=== PATIENT | male | born 1975 | race African-American/Black ===

== ENCOUNTER 2017-01-22 03:15 | Emergency (ER) | payer SELFPAY ==
[2017-01-22 03:27] VITALS: BP 146/90
--- NOTE | 2017-01-22 04:00 | ER Document Report ---
HPI - HPI Patient complains to provider of: right side pain Pain Level: 3 Context: Patient is a 41-year-old male that comes emergency department for chief complaint of right lower side pain, he states that he noticed this starting for the past 2-1/2 days, he cannot remember an injury, he states it hurts worse when he takes a deep breath, he denies any back pain, abdominal pain, chest pain , shortness of breath, nausea or vomiting. He takes no daily medications. Past medical history of lumbar surgery many years ago, denies any daily medications. - DERM Skin Color: Normal Past Medical History - General Information source: Patient - Social History Smoking Status: Never Smoker Frequency of alcohol use: None Drug Abuse: None Lives with: Family Family History: Reviewed & Not Pertinent Patient has suicidal ideation: No Patient has homicidal ideation: No - Medical History Medical History: Negative Renal/ Medical History: Denies: Hx Peritoneal Dialysis Surgical Hx: Negative - Immunizations Hx Diphtheria, Pertussis, Tetanus Vaccination: Yes Vertical Provider Document - CONSTITUTIONAL General Appearance: WD/WN, No Apparent Distress - INFECTION CONTROL TRAVEL OUTSIDE OF THE [place] IN LAST 30 DAYS: No - HEENT HEENT: Atraumatic, Normocephalic - NECK Neck: Normal Inspection - RESPIRATORY Respiratory: Breath Sounds Normal, No Respiratory Distress O2 Sat by Pulse Oximetry: 97 - CARDIOVASCULAR Cardiovascular: Regular Rate, Regular Rhythm - GI/ABDOMEN Gastrointestinal: Abdomen Soft, Abdomen Non-Tender - BACK Back: Normal Inspection - MUSCULOSKELETAL/EXTREMETIES Musculoskeletal/Extremeties: Tender - There is a knotted area over the right posterior lowest rib near the end of the rib which I can palpate, no abnormal heat or erythema to the area, no swelling to the area, normal examination otherwise - NEURO Level of Consciousness: Awake, Alert, Appropriate Course - Re-evaluation Re-evalutation: Difficult to see exactly what this small amount of the area on the right inferior posterior rib is, recommended that was most likely soft tissue injury, not consistent with abscess or mass, not consistent with infection or other growth. Patient requests an x-ray. This was performed, shows no abnormalities. Patient on naproxen, discussed follow-up and return precautions , patient states understanding and agreement. - Vital Signs Vital signs: Temp Pulse Resp BP Pulse Ox 98.1 F 87 16 146/90 H 97 01/22/17 03:26 01/22/17 03:26 01/22/17 03:26 01/22/17 03:26 01/22/17 03:26 - Diagnostic Test Radiology reviewed: Image reviewed, Reports reviewed Discharge - Discharge Clinical Impression: Rib pain on right side Condition: Stable Disposition: HOME, SELF-CARE Additional Instructions: X-rays show no abnormality. Examination is consistent with bony pain over the rib, possible contusion, possible soft tissue injury on top of the rib as well. Recommend heat to the area, take the naproxen as prescribed, stay hydrated. Follow-up with primary care. Return to emergency department for any concerning or worsening symptoms including difficulty breathing, swelling of the area, or any other concerning symptoms. Prescriptions: Naproxen 500 mg PO BID #20 tablet Forms: Return to Work
--- NOTE | 2017-01-22 04:51 | RADIOLOGY REPORT (SQ) ---
EXAM DESCRIPTION: RIBS RIGHT W/PA CHEST COMPLETED DATE/TIME: 01/22/2017 4:30 am REASON FOR STUDY: right lower rib pain COMPARISON: None. TECHNIQUE: Frontal view of the chest and additional views of the right ribs acquired. NUMBER OF VIEWS: Four view. LIMITATIONS: None. FINDINGS: FRONTAL CXR: No pneumothorax. No pleural effusion. No atelectasis or infiltrates. RIBS: No displaced rib fractures. No lytic or blastic bony lesions. OTHER: No other significant finding. IMPRESSION: NO PNEUMOTHORAX. NO DISPLACED RIB FRACTURES. COMMENT: SITE OF TRAUMA/COMPLAINT MARKED/STAMP COMPLETED: YES. TECHNICAL DOCUMENTATION: JOB ID: [id number] [employer] All Rights Reserved
== END 2017-01-22 05:28 | disposition home or self-care (01) ==
LOC: ER 03:15
DX: R07.81 Pleurodynia (principal)
CPT/HCPCS: 99283

== ENCOUNTER 2017-08-24 17:42 | Emergency (ER) | payer BC ==
[2017-08-24] MEDS ORDERED: TRAMADOL HCL 50 MG TABLET PO ONE (18:25)
[2017-08-24] MEDS ORDERED: IBUPROFEN 600 MG TABLET PO ONE (18:25)
--- NOTE | 2017-08-24 18:28 | ER Document Report ---
ED Extremity Problem, Lower - General Chief Complaint: Foot Pain Stated Complaint: RIGHT FOOT INJURY Time Seen by Provider: 08/24/17 18:14 Mode of Arrival: Ambulatory Information source: Patient TRAVEL OUTSIDE OF THE [place] IN LAST 30 DAYS: No - HPI Patient complains to provider of: Injury Notes: Patient arrives with complaints of right foot injury. He states that he stepped on a vent in a mobile home and his foot went through the vent and into the heating and cooling duct. When he pulled his foot out he cut his heel. States that he continues to have pain to the base of his heel as well as a laceration on the back of his heel. The pain is worse with standing or walking or touching the area. Bleeding is controlled. Last tetanus was last month. He denies any fevers. He denies any numbness, tingling, weakness. No chest pain or shortness of breath. No abdominal pain. No nausea vomiting diarrhea. He denies any other complaints at this time. - Related Data Allergies/Adverse Reactions: No Known Allergies Allergy (Verified 08/24/17 17:48) Past Medical History - Social History Smoking Status: Unknown if Ever Smoked Family History: Reviewed & Not Pertinent Renal/ Medical History: Denies: Hx Peritoneal Dialysis - Immunizations Hx Diphtheria, Pertussis, Tetanus Vaccination: Yes Review of Systems - Review of Systems -: Yes All other systems reviewed and negative Physical Exam - Vital signs Vitals: Temp Pulse Resp BP Pulse Ox 98.6 F 95 16 141/90 H 98 08/24/17 18:02 08/24/17 18:02 08/24/17 18:02 08/24/17 18:02 08/24/17 18:02 - Notes Notes: GENERAL: alert, cooperative, nontoxic, no distress. HEAD: normocephalic, atraumatic EYES: conjunctiva pink without discharge, no external redness or swelling. EARS: no external swelling, no external redness NOSE: atraumatic, no external swelling MOUTH/THROAT: mucous membranes moist and pink NECK: soft, supple, full range of motion, no meningismus. CHEST: no distress, lungs clear and equal throughout. No wheezing, rales, rhonchi. CARDIAC: regular rate and rhythm, no murmur, normal capillary refill, normal pulses. BACK: full range of motion, no CVA tenderness. EXTREMITIES: full range of motion of all extremities. No redness, no swelling. Tenderness to palpation of the right heel and plantar fascia. Full range of motion. Normal pulse and sensation distally. Normal cap refill. Healing laceration to the plantar aspect of the forefoot with no redness, swelling, drainage. Skin avulsion to the posterior heel. No active bleeding. No surrounding redness or drainage. Achilles is intact with a normal Mitchell's test. NEURO: alert and oriented 3, no focal deficits, full range of motion of all extremities. PYSCH: appropriate mood, affect. Patient is cooperative. SKIN: pink, warm, dry, no rash. Course - Re-evaluation Re-evalutation: 08/24/17 18:56 The patient is nontoxic appearing with stable vitals. The patient put his foot through a heating vent causing an injury to his foot as well as some superficial lacerations. Lacerations are healing well. There is no signs of infection. He has a normal neurovascular exam with soft compartments. X-ray shows no foreign body or acute bony abnormality per the radiologist. The patient will be discharged home with a prescription for Ultram and Voltaren. Instructed to keep wound clean and dry. Follow-up if not better in 1 week, sooner for increasing pain, fever, redness, drainage, any further concerns. The patient's emergency department workup and current diagnosis were explained to the patient and or family. Follow-up instructions were provided. Medications if prescribed were discussed. Instructions for when to return to the emergency department including specific worrisome symptoms were discussed with the patient and/or family. The patient is noted to have elevated blood pressure during today's emergency department visit. The patient was informed of this finding. The patient was instructed that this may be related to pre-hypertension and requires further evaluation with a primary care provider. The patient has no hypertensive symptoms at this time. - Vital Signs Vital signs: Temp Pulse Resp BP Pulse Ox 98.6 F 95 16 141/90 H 98 08/24/17 18:02 08/24/17 18:02 08/24/17 18:02 08/24/17 18:02 08/24/17 18:02 - Diagnostic Test Radiology reviewed: Image reviewed, Reports reviewed - No acute abnormality of the foot. Procedures - Immobilization Right foot Pre-Proc Neuro Vasc Exam: Normal Immobilizer type: Post-op shoe Performed by: PCT Post-Proc Neuro Vasc Exam: Normal Alignment checked and good: Yes Discharge - Discharge Clinical Impression: Right foot sprain Qualifiers: Encounter type: initial encounter Qualified Code(s): S93.601A - Unspecified sprain of right foot, initial encounter Laceration of right foot Qualifiers: Encounter type: initial encounter Qualified Code(s): S91.311A - Laceration without foreign body, right foot, initial encounter Condition: Stable Disposition: HOME, SELF-CARE Instructions: Laceration Care ([facility]), Foot Laceration ([facility]) Additional Instructions: Keep wound clean and dry. Take medications as prescribed. Follow-up for increasing pain, fever, redness, numbness, tingling, weakness, any further concerns. Your blood pressure was elevated during today's visit. Have this rechecked with your doctor. The medication you were prescribed today may cause drowsiness. Do not drive or operate heavy machinery while taking this medication. Prescriptions: Tramadol HCl [Ultram 50 mg Tablet] 50 mg PO Q6HP PRN #12 tablet PRN Reason: Naproxen [Naprosyn] 500 mg PO BID #20 tablet Forms: Elevated Blood Pressure, Smoking Cessation Education, Return to Work Referrals: [facility] [Provider Group] - Follow up as needed
--- NOTE | 2017-08-24 18:52 | RADIOLOGY REPORT (SQ) ---
EXAM DESCRIPTION: FOOT RIGHT COMPLETE COMPLETED DATE/TIME: 08/24/2017 6:44 pm REASON FOR STUDY: pain, injury COMPARISON: None. NUMBER OF VIEWS: Three views. TECHNIQUE: AP, lateral and oblique radiographic images acquired of the right foot. LIMITATIONS: None. FINDINGS: MINERALIZATION: Normal. BONES: No acute fracture or dislocation. No worrisome bone lesions. JOINTS: No effusions. SOFT TISSUES: No soft tissue swelling. No foreign body. OTHER: No other significant finding. IMPRESSION: NEGATIVE STUDY OF THE RIGHT FOOT. NO RADIOGRAPHIC EVIDENCE OF ACUTE INJURY. TECHNICAL DOCUMENTATION: JOB ID: [id number] [employer]- All Rights Reserved
[2017-08-24 20:12] VITALS: BP 148/96
== END 2017-08-24 20:13 | disposition home or self-care (01) ==
LOC: ER 17:42
DX: S93.601A Unspecified sprain of right foot, initial encounter (principal); S91.311A Laceration without foreign body, right foot, initial encounter; M79.671 Pain in right foot; W22.8XXA Striking against or struck by other objects, initial encounter
CPT/HCPCS: 99283

== ENCOUNTER 2017-09-01 14:31 | Emergency (ER) | payer BC ==
[2017-09-01 14:43] VITALS: BP 148/94
--- NOTE | 2017-09-01 15:09 | ER Document Report ---
HPI - HPI Patient complains to provider of: Wound recheck Onset: Last week Onset/Duration: Persistent Quality of pain: Achy Pain Level: 4 Context: Patient states that he cut his foot 1 week ago after stepping through a floor vent. Patient states he has been cleaning the wound daily with peroxide and alcohol. Patient complains of continued tenderness to wound site. Patient denies any fever. Associated Symptoms: Other - Wound to right foot Exacerbated by: Standing, Movement, Walking Relieved by: Denies Similar symptoms previously: No Recently seen / treated by doctor: Yes - ROS ROS below otherwise negative: Yes Systems Reviewed and Negative: Yes All other systems reviewed and negative - CONSTITUTIONAL Constitutional: DENIES: Fever, Chills - NEURO Neurology: DENIES: Weakness - MUSCULOSKELETAL Musculoskeletal: REPORTS: Extremity pain - DERM Notes: Wound to right foot Past Medical History - General Information source: Patient - Social History Smoking Status: Never Smoker Frequency of alcohol use: None Drug Abuse: None Occupation: [employer] Lives with: Family Family History: Reviewed & Not Pertinent - Medical History Medical History: Negative Renal/ Medical History: Denies: Hx Peritoneal Dialysis Past Surgical History: Reports: Hx Orthopedic Surgery, Other - Immunizations Hx Diphtheria, Pertussis, Tetanus Vaccination: Yes Vertical Provider Document - CONSTITUTIONAL Agree With Documented VS: Yes Exam Limitations: No Limitations General Appearance: WD/WN, No Apparent Distress - INFECTION CONTROL TRAVEL OUTSIDE OF THE [place] IN LAST 30 DAYS: No - HEENT HEENT: Atraumatic, Normocephalic - NECK Neck: Normal Inspection - RESPIRATORY Respiratory: No Respiratory Distress O2 Sat by Pulse Oximetry: 99 - CARDIOVASCULAR Pulses: Normal: Dorsalis pedis - MUSCULOSKELETAL/EXTREMETIES Musculoskeletal/Extremeties: MAEW, Tender - Right heel tenderness involving wound to posterior heel area, No Edema - NEURO Level of Consciousness: Awake, Alert, Appropriate Motor/Sensory: No Motor Deficit - DERM Integumentary: Warm, Dry Notes: Patient with healing open wound to posterior aspect of right heel, no erythema, no concern for cellulitis. Course - Re-evaluation Re-evalutation: 09/01/17 15:06 Patient with healing wound to his right foot. Suspect that patient's slow improvement of wound is likely attributed to his wound management. Patient encouraged to avoid using peroxide to cleanse the wound and instead advised to use an actual soap and water. Discussed to dress wound at home. Discussed worsening symptoms that patient should return for. Patient verbalized understanding and agrees with plan of care 09/01/17 15:07 The patient has been informed that they may have pre-hypertension or hypertension based on a blood pressure reading in the emergency department. I recommend that patient call the primary care provider listed on their discharge instructions or a physician of their choice by this week to arrange follow-up for further evaluation of possible pre-hypertension or hypertension. - Vital Signs Vital signs: Temp Pulse Resp BP Pulse Ox 98.8 F 83 16 148/94 H 99 09/01/17 14:41 09/01/17 14:41 09/01/17 14:41 09/01/17 14:41 09/01/17 14:41 - Diagnostic Test Radiology reviewed: Reports reviewed - Reviewed radiology report from previous ER visit Discharge - Discharge Clinical Impression: Elevated blood pressure reading Wound, open, foot Qualifiers: Encounter type: initial encounter Laterality: right Qualified Code(s): S91.301A - Unspecified open wound, right foot, initial encounter Condition: Stable Disposition: HOME, SELF-CARE Instructions: Dressing Instructions for Open Wounds ([facility]) Additional Instructions: Return immediately for any new or worsening symptoms Followup with your primary care provider, call tomorrow to make a followup appointment Cleanse wound with antibacterial soap and water. Keep wound covered as it continues to heal. Forms: Elevated Blood Pressure, Return to Work Referrals: HANK DRUMMOND DPM [ACTIVE STAFF] - Follow up as needed IRENE HODGES DPM [ACTIVE STAFF] - Follow up as needed
== END 2017-09-01 15:19 | disposition home or self-care (01) ==
LOC: ER 14:31
DX: S91.301A Unspecified open wound, right foot, initial encounter (principal); R03.0 Elevated blood-pressure reading, without diagnosis of hypertension; W17.89XA Other fall from one level to another, initial encounter
CPT/HCPCS: 99283

== ENCOUNTER 2017-09-11 18:45 | Emergency (ER) | payer BC ==
[2017-09-11] MEDS ORDERED: ACETAMINOPHEN 325 MG TABLET PO ONE (19:56)
[2017-09-11] MEDS ORDERED: ONDANSETRON 4 MG TAB.RAPDIS PO ONE (20:09)
[2017-09-11] MEDS ORDERED: GUAIFENESIN/D-METHORPHAN (200-20 MG) SYRUP 10 ML PO ONE (20:09)
--- NOTE | 2017-09-11 20:10 | ER Document Report ---
ED Flu Like - General Chief Complaint: Flu Symptoms Stated Complaint: FLU SYMPTOMS Time Seen by Provider: 09/11/17 19:42 Mode of Arrival: Ambulatory Information source: Patient Notes: Patient is a 41-year-old male who presents to the ER today for cough, fever, body aches, chills, sinus congestion, vomiting and diarrhea 3-1/2 days. Patient has not been taking anything at home for the symptoms, denies any shortness of breath or chest pain. He states he has not been able to eat anything because of the nausea and vomiting. He denies having asthma. TRAVEL OUTSIDE OF THE [place] IN LAST 30 DAYS: No - Related Data Allergies/Adverse Reactions: No Known Allergies Allergy (Verified 09/11/17 18:45) Past Medical History - General Information source: Patient - Social History Smoking Status: Unknown if Ever Smoked Family History: Reviewed & Not Pertinent Patient has suicidal ideation: No Patient has homicidal ideation: No Renal/ Medical History: Denies: Hx Peritoneal Dialysis Past Surgical History: Reports: Hx Orthopedic Surgery, Other - Immunizations Hx Diphtheria, Pertussis, Tetanus Vaccination: Yes Review of Systems - Review of Systems Constitutional: See HPI EENT: See HPI Cardiovascular: No symptoms reported Respiratory: See HPI Gastrointestinal: See HPI Genitourinary: No symptoms reported Male Genitourinary: No symptoms reported Musculoskeletal: No symptoms reported Skin: No symptoms reported Hematologic/Lymphatic: No symptoms reported Neurological/Psychological: No symptoms reported Physical Exam - Vital signs Vitals: Temp Pulse BP Pulse Ox 102.6 F H 113 H 156/96 H 96 09/11/17 19:38 09/11/17 19:38 09/11/17 19:38 09/11/17 19:38 - Notes Notes: PHYSICAL EXAMINATION: GENERAL: Mildly ill-appearing, but in no acute distress. HEAD: Atraumatic, normocephalic. EYES: Pupils equal round and reactive to light, extraocular movements intact, sclera anicteric, conjunctiva are normal. ENT: ear canals without erythema or foreign body, TMs pearly adam with good bony landmarks, nares with mucoid discharge, oropharynx clear without exudates. Moist mucous membranes. NECK: Normal range of motion, supple without lymphadenopathy LUNGS: Cough, otherwise CTAB and equal. No wheezes rales or rhonchi. HEART: Regular rate and rhythm without murmurs ABDOMEN: Soft, no tenderness. No guarding, no rebound BACK: no vertebral tenderness, normal ROM GI/: no CVA tenderness EXTREMITIES: Normal range of motion, no pitting edema. No cyanosis. NEUROLOGICAL: Cranial nerves grossly intact. Normal sensory/motor exams. PSYCH: Normal mood, normal affect. SKIN: Warm, Dry, normal turgor, no rashes or lesions noted Course - Re-evaluation Re-evalutation: 09/11/17 21:40 Patient passed and a p.o. challenge with crackers and something to drink after Zofran was given. Fever did reduce with Tylenol here. Patient got something for his cough. I will send home with symptomatic treatment for flulike symptoms. - Vital Signs Vital signs: Temp Pulse Resp BP Pulse Ox 102.6 F H 113 H 156/96 H 96 09/11/17 19:38 09/11/17 19:38 09/11/17 19:38 09/11/17 19:38 Discharge - Discharge Clinical Impression: Flu-like symptoms Condition: Stable Disposition: HOME, SELF-CARE Additional Instructions: Return immediately for any new or worsening symptoms. Follow up with primary care provider, call tomorrow to make followup appointment. Rest and drink plenty fluids. Prescriptions: Acetaminophen with Codeine [Tylenol with Codeine 120 mg-12 mg/5 ml] 5 ml PO Q4HP PRN #120 ml PRN Reason: Ondansetron [Zofran Odt 4 mg Tablet] 4 mg PO Q4HP PRN #30 tab.rapdis PRN Reason: Ibuprofen [Motrin 800 mg Tablet] 800 mg PO Q8H PRN #30 tab PRN Reason: Forms: Return to Work
[2017-09-11 22:35] VITALS: BP 135/82
== END 2017-09-11 21:35 | disposition home or self-care (01) ==
LOC: ER 18:45
DX: R05 Cough (principal); R50.9 Fever, unspecified; R09.81 Nasal congestion; R19.7 Diarrhea, unspecified; R11.2 Nausea with vomiting, unspecified; R52 Pain, unspecified
CPT/HCPCS: 99283; S0119; J3490

== ENCOUNTER 2017-12-03 11:56 | Emergency (ER) | payer BC ==
[2017-12-03 12:01] VITALS: BP 145/91
--- NOTE | 2017-12-03 13:04 | ER Document Report ---
HPI - HPI Patient complains to provider of: sore throat Onset: Other - 3 days Onset/Duration: Sudden Pain Level: 4 Context: 42 yo male with sore throat for 3 days. odynophagia. mild couhg. daughter had sterpt this week. Associated Symptoms: Earache Exacerbated by: Other - sweallowing Relieved by: Denies Similar symptoms previously: Yes Recently seen / treated by doctor: No - ROS ROS below otherwise negative: Yes Systems Reviewed and Negative: Yes All other systems reviewed and negative Past Medical History - General Information source: Patient - Social History Smoking Status: Current Every Day Smoker Frequency of alcohol use: None Drug Abuse: None Occupation: [employer] Lives with: Family Family History: Reviewed & Not Pertinent - Medical History Medical History: Negative Renal/ Medical History: Denies: Hx Peritoneal Dialysis Past Surgical History: Reports: Hx Orthopedic Surgery, Other - Immunizations Hx Diphtheria, Pertussis, Tetanus Vaccination: Yes Vertical Provider Document - CONSTITUTIONAL Agree With Documented VS: Yes Exam Limitations: No Limitations General Appearance: No Apparent Distress - INFECTION CONTROL TRAVEL OUTSIDE OF THE [place] IN LAST 30 DAYS: No - HEENT HEENT: Normocephalic, Pharyngeal Erythema. negative: Conjuctival Injection, Tympanic Membrane Red - NECK Neck: Supple, Lymphadenopathy-Left, Lymphadenopathy-Right - RESPIRATORY Respiratory: Breath Sounds Normal, No Respiratory Distress - CARDIOVASCULAR Cardiovascular: Regular Rate, Regular Rhythm - GI/ABDOMEN Gastrointestinal: Abdomen Soft, Abdomen Non-Tender, No Organomegaly - MUSCULOSKELETAL/EXTREMETIES Musculoskeletal/Extremeties: MAEW - NEURO Level of Consciousness: Awake - DERM Integumentary: No Rash Course - Vital Signs Vital signs: Temp Pulse Resp BP Pulse Ox 99.9 F 105 H 20 145/91 H 97 12/03/17 12:00 12/03/17 12:00 12/03/17 12:00 12/03/17 12:00 12/03/17 12:00 Discharge - Discharge Clinical Impression: Streptococcal sore throat Condition: Good Disposition: HOME, SELF-CARE Instructions: Penicillin V K ([facility]), Strep Throat ([facility]), Ibuprofen (General) ( [facility]), Acetaminophen, Topical Lidocaine ([facility]) Additional Instructions: chloraseptic spray motrin tylenol penicillin until it is gone plenty of fluids to er if worse Prescriptions: Ibuprofen [Motrin 800 mg Tablet] 800 mg PO Q8HP PRN #30 tablet PRN Reason: Penicillin V Potassium [Penicillin Vk 500 mg Tablet] 500 mg PO QID #40 tablet Forms: Return to Work
[2017-12-03] MEDS ORDERED: PENICILLIN V POTASSIUM 500 MG TABLET PO ONE (13:27)
[2017-12-03] MEDS ORDERED: IBUPROFEN 800 MG TABLET PO ONE (13:27)
[2017-12-03] MEDS ORDERED: LIDOCAINE 2% VISCOUS SOLN 20 ML UDCUP PO ONE (13:28)
== END 2017-12-03 13:58 | disposition home or self-care (01) ==
LOC: ER 11:56
DX: J02.0 Streptococcal pharyngitis (principal); R13.10 Dysphagia, unspecified; R05 Cough; H92.09 Otalgia, unspecified ear; F17.200 Nicotine dependence, unspecified, uncomplicated
CPT/HCPCS: 99283; 87880; J3490

== ENCOUNTER 2018-01-10 12:38 | Emergency (ER) | payer OTHER, BC ==
[2018-01-10 12:56] VITALS: BP 131/87
[2018-01-10] MEDS ORDERED: DEXAMETHASONE SOD PHOS INJ 10 MG/1 ML VIAL IM ONE (13:00)
[2018-01-10] MEDS ORDERED: KETOROLAC TROMETHAMINE INJ/PF 30 MG/1 ML SDV IM ONE (13:00)
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
== END 2018-01-10 13:27 | disposition home or self-care (01) ==
LOC: ER 12:38
DX: M46.1 Sacroiliitis, not elsewhere classified (principal); G89.29 Other chronic pain; M54.5 Low back pain
CPT/HCPCS: 99283; 96372; J1885; J1100

== ENCOUNTER 2018-01-27 19:37 | Emergency (ER) | payer OTHER, BC ==
[2018-01-27] MEDS ORDERED: ACETAMINOPHEN 325 MG TABLET PO ONE (20:46)
[2018-01-27] MEDS ORDERED: HYDROCODONE/ACETAMINOPHEN 5-325 MG TABLET PO ONE (22:04)
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
[2018-01-28 00:47] VITALS: BP 154/101
== END 2018-01-28 00:47 | disposition home or self-care (01) ==
LOC: ER 19:37
DX: S16.1XXA Strain of muscle, fascia and tendon at neck level, initial encounter (principal); S39.012A Strain of muscle, fascia and tendon of lower back, initial encounter; R51 Headache; V89.2XXA Person injured in unspecified motor-vehicle accident, traffic, initial encounter
CPT/HCPCS: 72050; 72110; 99283

== ENCOUNTER 2018-01-30 10:24 | Emergency (ER) | payer OTHER, BC ==
[2018-01-30 10:31] VITALS: BP 148/93
[2018-01-30] MEDS ORDERED: DIAZEPAM 5 MG TABLET PO ONE (11:03)
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
== END 2018-01-30 12:46 | disposition home or self-care (01) ==
LOC: ER 10:24
DX: S16.1XXA Strain of muscle, fascia and tendon at neck level, initial encounter (principal); V49.50XA Passenger injured in collision with unspecified motor vehicles in traffic accident, initial encounter; F17.200 Nicotine dependence, unspecified, uncomplicated
CPT/HCPCS: 72052; 99283

== ENCOUNTER 2018-06-02 15:20 | Emergency (ER) | payer BC, OTHER ==
[2018-06-02] MEDS ORDERED: NORMAL SALINE 1000 ML 1,000 ML IV ONE (16:18)
[2018-06-02] MEDS ORDERED: METOCLOPRAMIDE HCL INJ/PF 10 MG/2 ML SDV IV ONE (16:18)
[2018-06-02] MEDS ORDERED: CLONIDINE HCL 0.1 MG TABLET PO ONE (16:18)
[2018-06-02] MEDS ORDERED: DIPHENHYDRAMINE HCL 50 MG/ML VIAL IV ONE (16:18)
--- NOTE | 2018-06-02 16:21 | ER Document Report ---
ED Medical Screen (RME) - General Chief Complaint: Headache Stated Complaint: HEADACHE Time Seen by Provider: 06/02/18 16:13 Mode of Arrival: Ambulatory Information source: Patient Notes: 42-year-old male presents emergency department with a 3-day history of a throbbing headache. Patient states that it came on mild and it has been gradually worsening. He states that it spread dominantly located at his temples. He describes it as a throbbing sensation. He denies any radiation of the pain. He states that the pain is worsened with lights and noise. No alleviating factors. Patient's tried Motrin and naproxen without any relief. He is having some associated nausea. He states that he had a similar headache about a month ago. Patient states that this 1 is more intense and is not resolving on its own. He denies any fever, chills, neck pain. Patient states that his blood pressures been elevated. He is not on any antihypertensive medications. Patient states that he is also had some rhinorrhea and a productive cough that just started today. I have greeted and performed a rapid initial assessment of this patient. A comprehensive ED assessment and evaluation of the patient, analysis of test results and completion of the medical decision making process will be conducted by additional ED providers. PHYSICAL EXAMINATION: GENERAL: Well-appearing, well-nourished and in no acute distress. HEAD: Atraumatic, normocephalic. EYES: Pupils equal round extraocular movements intact, conjunctiva are normal. ENT: Nares patent NECK: Normal range of motion LUNGS: No respiratory distress Musculoskeletal: Normal range of motion NEUROLOGICAL: Normal speech, normal gait. PSYCH: Normal mood, normal affect. SKIN: Warm, Dry, normal turgor, no rashes or lesions noted. TRAVEL OUTSIDE OF THE [place] IN LAST 30 DAYS: No - Related Data Allergies/Adverse Reactions: No Known Allergies Allergy (Verified 06/02/18 15:22) Past Medical History - Social History Chew tobacco use (# tins/day): No Frequency of alcohol use: Occasional Drug Abuse: None Renal/ Medical History: Denies: Hx Peritoneal Dialysis Past Surgical History: Reports: Hx Orthopedic Surgery - back, Other - Immunizations Hx Diphtheria, Pertussis, Tetanus Vaccination: Yes Physical Exam - Vital signs Vitals: Temp Pulse Resp BP Pulse Ox 98.5 F 91 16 164/93 H 96 06/02/18 15:25 06/02/18 15:25 06/02/18 15:25 06/02/18 15:25 06/02/18 15:25 Course - Vital Signs Vital signs: Temp Pulse Resp BP Pulse Ox 98.5 F 91 16 164/93 H 96 06/02/18 15:25 06/02/18 15:25 06/02/18 15:25 06/02/18 15:25 06/02/18 15:25
--- NOTE | 2018-06-02 17:24 | RADIOLOGY REPORT (SQ) ---
EXAM DESCRIPTION: CHEST SINGLE VIEW COMPLETED DATE/TIME: 06/02/2018 5:06 pm REASON FOR STUDY: cough COMPARISON: 12/30/2015 EXAM PARAMETERS: NUMBER OF VIEWS: One view. TECHNIQUE: Single frontal radiographic view of the chest acquired. RADIATION DOSE: NA LIMITATIONS: None. FINDINGS: LUNGS AND PLEURA: No opacities, masses or pneumothorax. No pleural effusion. MEDIASTINUM AND HILAR STRUCTURES: No masses. Contour normal. HEART AND VASCULAR STRUCTURES: Heart normal in size. Normal vasculature. BONES: No acute findings. HARDWARE: None in the chest. OTHER: No other significant finding. IMPRESSION: NO ACUTE RADIOGRAPHIC FINDING IN THE CHEST. TECHNICAL DOCUMENTATION: JOB ID: [id number] [place]-72 2010 [employer]- All Rights Reserved Reading location - IP/workstation name: [email or web address]
--- NOTE | 2018-06-02 17:28 | ER Document Report ---
ED General - General Chief Complaint: Headache Stated Complaint: HEADACHE Time Seen by Provider: 06/02/18 16:13 Mode of Arrival: Ambulatory TRAVEL OUTSIDE OF THE [place] IN LAST 30 DAYS: No - HPI Notes: Patient is a 42-year-old male with no significant past medical history aside from elevated blood pressure, unmedicated, who presents to the ED complaining of a frontal headache intermittently over the last 3 days that is described as a throb. Patient states that he has had headaches before that were similar, but his conservative measures have not been helping as much this time. Patient states that he is otherwise eating and drinking without any difficulties. He is urinating normally and having normal bowel movements. Patient states that he does have some nasal congestion/discharge that started today as well as an occasional dry cough, but otherwise feels well. Denies any drug allergies or IV drug use. No other concerns or complaints. Denies any fever, head injury, neck pain, changes in vision/speech/mentation/hearing, URI, sore throat, chest pain, palpitations, syncope, cough, shortness of breath, wheeze, dyspnea, abdominal pain, nausea/vomiting/diarrhea, urinary retention, dysuria, hematuria , loss of control of bowel or bladder, numbness/tingling, saddle anesthesia, muscle paralysis/weakness, or rash. - Related Data Allergies/Adverse Reactions: No Known Allergies Allergy (Verified 06/02/18 15:22) Past Medical History - General Information source: Patient - Social History Smoking Status: Current Some Day Smoker Chew tobacco use (# tins/day): No Frequency of alcohol use: Occasional Drug Abuse: None Family History: Reviewed & Not Pertinent Patient has suicidal ideation: No Patient has homicidal ideation: No Renal/ Medical History: Denies: Hx Peritoneal Dialysis Past Surgical History: Reports: Hx Orthopedic Surgery - back, Other - Immunizations Hx Diphtheria, Pertussis, Tetanus Vaccination: Yes Review of Systems - Review of Systems -: Yes All other systems reviewed and negative Physical Exam - Vital signs Vitals: Temp Pulse Resp BP Pulse Ox 98.5 F 91 16 164/93 H 96 06/02/18 15:25 06/02/18 15:25 06/02/18 15:25 06/02/18 15:25 06/02/18 15:25 - Notes Notes: PHYSICAL EXAMINATION: GENERAL: Well-appearing, well-nourished and in no acute distress. A&Ox4. Answers questions appropriately. HEAD: Atraumatic, normocephalic. Non-tender. EYES: Pupils equal round and reactive to light, extraocular movements intact, sclera anicteric, conjunctiva are normal. No nystagmus. vis morris intact. ENT: EAC clear b/l. TM's intact b/l without erythema, fluid, or perforation. Nares patent and without discharge. oropharynx clear without exudates. No tonsilar hypertrophy or erythema. Moist mucous membranes. No sinus tenderness. NECK: Normal range of motion, supple without lymphadenopathy. No rigidity/ meningismus. No midline tenderness. LUNGS: Breath sounds clear to auscultation bilaterally and equal. No wheezes rales or rhonchi. HEART: Regular rate and rhythm without murmurs, rubs, gallops. ABDOMEN: Soft, nontender, nondistended abdomen. No guarding, no rebound. Normal bowel sounds present. No CVA tenderness bilaterally. Musculoskeletal: Ext's b/l: FROM to passive/active. Strength 5+/5. No deficits noted. No bony tenderness of extremities. Extremities: No cyanosis, clubbing, or edema b/l. Peripheral pulses 2+. Capillary refill less than 2 seconds. NEUROLOGICAL: NIH 0. GCS 15. Cranial nerves grossly intact. Normal speech, normal gait. Normal sensory, motor exams. Reflexes 2+ b/l. JERZY's negative. Pronator drift negative. Heel/solano, finger/nose wnl. PSYCH: Normal mood, normal affect. SKIN: Warm, Dry, normal turgor, no rashes or lesions noted. Course - Re-evaluation Re-evalutation: 06/02/18 17:28 Patient received clonidine, Benadryl, and Compazine at triage which resolved his headache. Patient states that he is feeling much better. We are waiting for his influenza test and chest x-ray to return. Patient is currently receiving fluids as well. Patient has no new concerns or complaints at this time. 06/02/18 18:18 Patient is an afebrile, well-hydrated, 42-year-old male who presents to the ED for an acute URI, suspect viral as well as a headache which I suspect to be benign. Vitals are acceptable without any significant tachycardia, tachypnea, or hypoxia. Blood pressure has remained stable. PE is otherwise unremarkable for any focal neurological deficits. NIH 0, GCS 15, cranial nerves grossly intact. Chest x-ray was unremarkable and rapid influenza was negative. Patient is nontoxic-appearing and is tolerating p.o. without any difficulties. No further labs or imaging warranted at this time. Patient states that he is patient is currently asymptomatic. Low suspicion for any acute glaucoma, temporal arteritis, meningitis, intracranial hemorrhage, ischemic stroke, sepsis , severe dehydration, or fracture at this time. Patient is aware that his condition can change from initial presentation and that he needs to monitor symptoms closely for any acute changes. Conservative measures for symptoms. Recheck with your PCM in 2-3 days. Return to the ED with any worsening/ concerning symptoms otherwise as reviewed in discharge. Patient is in agreement. - Vital Signs Vital signs: Temp Pulse Resp BP Pulse Ox 98.4 F 80 16 135/91 H 96 06/02/18 18:12 06/02/18 18:12 06/02/18 15:25 06/02/18 18:12 06/02/18 18:12 Discharge - Discharge Clinical Impression: Acute URI Headache Qualifiers: Headache type: unspecified Headache chronicity pattern: acute headache Intractability: not intractable Qualified Code(s): R51 - Headache Condition: Stable Disposition: HOME, SELF-CARE Instructions: Headache ([facility]) Additional Instructions: Maintain adequate fluid and food intake [id number] cold medication as needed Take home medications as directed Low sodium/fat diet Exercise regularly Monitor blood pressure daily and keep a log Monitor symptoms for any acute changes Recheck with your PCM in 2-3 days Consider a follow-up with cardiology Return to the ED with any worsening symptoms and/or development of fever, headache, changes in behavior/mentation/vision/speech, chest pain, palpitations , syncope, shortness of breath, trouble breathing, abdominal pain, n/v/d, blood in stool/urine, loss of control of bowel/bladder, urinary retention, muscle weakness/paralysis, saddle anesthesia, numbness/tingling, or other worsening symptoms that are concerning to you. Forms: Elevated Blood Pressure, Smoking Cessation Education Referrals: MITA GARCIA MD [ACTIVE STAFF] - Follow up in 3-5 days
[2018-06-02 17:35] LABS: A TYPE INFLUENZA AG NEGATIVE (NEGATIVE); B INFLUENZA AG NEGATIVE (NEGATIVE)
[2018-06-02 18:15] VITALS: BP 135/91
== END 2018-06-02 18:20 | disposition home or self-care (01) ==
LOC: ER 15:20
DX: J06.9 Acute upper respiratory infection, unspecified (principal); R51 Headache; R05 Cough; R03.0 Elevated blood-pressure reading, without diagnosis of hypertension; F17.200 Nicotine dependence, unspecified, uncomplicated
CPT/HCPCS: 99284; 96361; 96374; 96375; 87804; 71045; J1200; J2765; J7030

== ENCOUNTER 2018-10-16 15:17 | Emergency (ER) | payer BC, OTHER ==
[2018-10-16 16:14] LABS: APPEARANCE,URINE CLEAR; BILIRUBIN,URINE NEGATIVE (NEGATIVE); COLOR,URINE YELLOW; GLUCOSE, URINE NEGATIVE (NEGATIVE); KETONES,URINE NEGATIVE (NEGATIVE); LEUKOCYTE ESTERASE,URINE NEGATIVE (NEGATIVE); NITRITE,URINE NEGATIVE (NEGATIVE); PROTEIN,URINE NEGATIVE (NEGATIVE); URINE SPECIFIC GRAVITY 1.024; UROBILINOGEN,URINE NEGATIVE mg/dL (<2.0)
[2018-10-16] MEDS ORDERED: AZITHROMYCIN 250 MG TABLET PO ONE (16:40)
[2018-10-16] MEDS ORDERED: METRONIDAZOLE 500 MG TABLET PO ONE (16:40)
[2018-10-16] MEDS ORDERED: CEFTRIAXONE INJ 250 MG VIAL IM ONE (16:40)
[2018-10-16] MEDS ORDERED: LIDOCAINE 1% INJ-PF (10 MG/ML) 30 ML SDV NEB ONE (16:40)
--- NOTE | 2018-10-16 16:46 | ER Document Report ---
ED GI/ - General Chief Complaint: Penile Discharge Stated Complaint: GROIN PAIN, PENILE DISCHARGE Time Seen by Provider: 10/16/18 16:11 Mode of Arrival: Ambulatory Information source: Patient Notes: 43-year-old male presents to ED for complaint of penile discharge and some groin discomfort for couple days. He states that started today. He states the discharge is kind of a cloudy clear. He states he is in a monogamous relationship with his significant other and she recently was diagnosed with bacterial vaginosis. He states he is not been intermittent with anybody but her. States he works at [employer] and [employer]. TRAVEL OUTSIDE OF THE [place] IN LAST 30 DAYS: No - HPI Patient complains to provider of: Groin pain, Other - Penile discharge Onset: Other - See above Quality of pain: Achy Severity at maximum: Mild Severity in ED: Mild Pain Level: 1 Location: Other - Left groin Associated symptoms: Penile discharge, Other - Left groin discomfort with no swelling or redness Exacerbated by: Denies Relieved by: Denies Similar symptoms previously: No Recently seen / treated by doctor: No - Related Data Allergies/Adverse Reactions: No Known Allergies Allergy (Verified 06/02/18 15:22) Past Medical History - General Information source: Patient - Social History Smoking Status: Current Some Day Smoker Cigarette use (# per day): Yes Smoking Education Provided: Yes - 4 minutes Frequency of alcohol use: None - Weekly 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 Lives with: Spouse/Significant other Family History: Reviewed & Not Pertinent Patient has suicidal ideation: No Patient has homicidal ideation: No - Past Medical History Cardiac Medical History: Reports: None Pulmonary Medical History: Reports: None EENT Medical History: Reports: None Neurological Medical History: Reports: None Endocrine Medical History: Reports: None Renal/ Medical History: Reports: None Malignancy Medical History: Reports None GI Medical History: Reports: None Musculoskeletal Medical History: Reports Hx Musculoskeletal Trauma Skin Medical History: Reports None Psychiatric Medical History: Reports: None Traumatic Medical History: Reports: None Infectious Medical History: Reports: None Past Surgical History: Reports: Hx Orthopedic Surgery - back, Other - Immunizations Immunizations up to date: Yes Hx Diphtheria, Pertussis, Tetanus Vaccination: Yes Review of Systems - Review of Systems Constitutional: No symptoms reported EENT: No symptoms reported Cardiovascular: No symptoms reported Respiratory: No symptoms reported Gastrointestinal: No symptoms reported Genitourinary: No symptoms reported Male Genitourinary: Penile discharge - cloudy Musculoskeletal: Muscle pain - groin Skin: No symptoms reported Hematologic/Lymphatic: No symptoms reported Neurological/Psychological: No symptoms reported -: Yes All other systems reviewed and negative Physical Exam - Vital signs Vitals: Temp Pulse Resp BP Pulse Ox 98.7 F 81 16 148/91 H 100 10/16/18 15:29 10/16/18 15:29 10/16/18 15:29 10/16/18 15:29 10/16/18 15:29 Interpretation: Normal - General General appearance: Appears well, Alert - HEENT Head: Normocephalic, Atraumatic Eyes: Normal Pupils: PERRL - Respiratory Respiratory status: No respiratory distress Chest status: Nontender Breath sounds: Normal Chest palpation: Normal - Cardiovascular Rhythm: Regular Heart sounds: Normal auscultation Murmur: No - Abdominal Inspection: Normal Distension: No distension Bowel sounds: Normal Tenderness: Nontender Organomegaly: No organomegaly - Genitourinary Inspection: Penile discharge Tenderness: Other - left groin Cremasteric reflex: Normal Scrotum: Normal - Back Back: Normal, Nontender - Extremities General upper extremity: Normal inspection, Nontender, Normal color, Normal ROM, Normal temperature General lower extremity: Normal inspection, Nontender, Normal color, Normal ROM, Normal temperature, Normal weight bearing. No: Paras's sign - Neurological Neuro grossly intact: Yes Cognition: Normal Orientation: AAOx4 [place] Coma Scale Eye Opening: Spontaneous [place] Coma Scale Verbal: Oriented [place] Coma Scale Motor: Obeys Commands [place] Coma Scale Total: 15 Speech: Normal Motor strength normal: LUE, RUE, LLE, RLE Sensory: Normal - Psychological Associated symptoms: Normal affect, Normal mood - Skin Skin Temperature: Warm Skin Moisture: Dry Skin Color: Normal Course - Re-evaluation Re-evalutation: 10/16/18 17:14 Patient was treated with Rocephin, azithromycin, and Flagyl for his penile discharge and groin pain. He was also instructed to follow-up with urology if his pain continues. His girlfriend is being treated for bacterial vaginosis with Flagyl so the patient was treated with Flagyl also. Patient was given the number to call for his results of his gonorrhea and chlamydia tomorrow at [phone]. Patient was instructed on no sexual activity until he got the results of these and if they were positive no sexual activity until they had both been treated for 10-14 days. - Vital Signs Vital signs: Temp Pulse Resp BP Pulse Ox 98.7 F 72 16 138/88 H 99 10/16/18 15:29 10/16/18 17:13 10/16/18 17:13 10/16/18 17:13 10/16/18 17:13 Discharge - Discharge Clinical Impression: Penile discharge Condition: Stable Disposition: HOME, SELF-CARE Additional Instructions: Urethritis You have urethritis, an infection of the urethra. The usual symptoms are pain on urination and discharge. The infection is often caused by gonorrhea or chlamydia. Treatment is antibiotics. In addition, any sexual contacts should be evaluated by a physician as soon as possible. As this infection can be transmitted sexually, refrain from sexual activity until the infection is c onfirmed as healed by your physician. If gonorrhea or chlamydia is found on culture, the health department must be notified. Call the doctor at once if you develop difficulty passing your urine, high fever, rash, joint swelling, or other new symptoms. CEPHALOSPORINS: An antibiotic of the cephalosporin class has been prescribed. This type of antibiotic covers a wide variety of infections, including those of the skin, lungs, middle ear, and urinary tract. This antibiotic is somewhat similar to the penicillin family. In rare cases, a person who is allergic to penicillin will also be allergic to this medication. If you have had a severe allergic reaction to penicillin, and have not taken this antibiotic since that time, notify your doctor. Antibiotics which cover many germs ("broad spectrum" antibiotics) are more likely to cause diarrhea or "yeast" infections. Women prone to vaginal yeast problems may suffer an attack after taking this antibiotic. In infants, oral thrush (white spots "stuck" on the cheek) or yeast diaper rash may result. See your doctor if these problems occur. Call the doctor at once if you develop hives, itching, shortness of breath, or lightheadedness. AZITHROMYCIN: Azithromycin (Zithromax) is a broad spectrum antibiotic in the same class as erythromycin. It can treat a variety of bacterial infections, but is most frequently used for respiratory infections. Azithromycin is extremely long-lasting. It accumulates in body tissues and continues to kill bacteria for many days. In order to improve absorption, Azithromycin should be taken at least one hour before or two hours after a meal. It does not have the same strong tendency to upset the stomach as erythromycin and is usually very well tole rated. Patients who have had a rash or other true allergic reactions to erythromycin should not take this medication. Call if you develop gastrointestinal distress, severe diarrhea, rash, hives, itching, or shortness of breath. METRONIDAZOLE: You are being treated with Flagyl due to your significant other's diagnosis of bacterial vaginosis Metronidazole (Flagyl) has been prescribed. This medication is used to kill a type of bacteria called anaerobes, and protozoan parasites such as trichomonas and Giardia. Flagyl often causes a metallic taste in the mouth and mild nausea. Do not use alcohol in any form with Flagyl (including alcohol in medication elixirs). Flagyl interacts with alcohol to cause flushing, palpitations, headache, stomach cramps, and vomiting. Do not use Flagyl if you are taking Antabuse (disulfiram). Call the doctor at once if you develop rash, shortness of breath, itching, or lightheadedness. FOLLOW-UP CARE: If you have been referred to a physician for follow-up care, call the physicians office for an appointment as you were instructed or within the next two days. If you experience worsening or a significant change in your symptoms, notify the physician immediately or return to the Emergency Department at any time for re-evaluation. You can call tomorrow [phone] and ask for the results of your gonorrhea and Chlamydia test that was done today. You continue to have pain in your groin you will need to follow-up with 1 of the following urologist [facility] [address] [facility] Open 9:00 AM - 5:00 PM [facility] [address] [place] 8:00 AM - 4:30 PM [facility] [address] [place] [facility] [address] [facility] Prescriptions: Metronidazole [Flagyl 500 mg Tablet] 500 mg PO BID #14 tablet Forms: Return to Work
[2018-10-16 17:14] VITALS: BP 138/88
[2018-10-16 17:37] LABS: CHLAM PCR NOT DETECTED (NOT DETECT); GON PCR NOT DETECTED (NOT DETECT)
== END 2018-10-16 17:15 | disposition home or self-care (01) ==
LOC: ER 15:17
DX: R36.9 Urethral discharge, unspecified (principal); R10.30 Lower abdominal pain, unspecified; F17.210 Nicotine dependence, cigarettes, uncomplicated
CPT/HCPCS: 99406; 99283; 96372; 81001; 87491; 87591; J3490; J0696

== ENCOUNTER 2018-11-09 07:30 | Emergency (ER) | payer OTHER ==
[2018-11-09] MEDS ORDERED: DIPHENHYDRAMINE HCL 50 MG/ML VIAL IV ONE (08:44)
[2018-11-09] MEDS ORDERED: ONDANSETRON HCL INJ/PF 4 MG/2 ML SDV IV ONE (08:44)
[2018-11-09] MEDS ORDERED: PROCHLORPERAZINE EDISYLATE INJ 10 MG/2 ML VIAL IM ONE (08:44)
--- NOTE | 2018-11-09 08:47 | ER Document Report ---
ED General - General Chief Complaint: Headache Stated Complaint: HEADACHE Time Seen by Provider: 11/09/18 08:27 Notes: Patient is a 43-year-old male who presents emergency department with a chief complaint of a headache that starts at his for her head and radiates to the back of his head and neck. He states that he has had his headache for the past 3 days. Has taken ibuprofen and naproxen at home, with no relief. He is history of migraines in the past. States his mother had taken him as a child to the emergency department to have his headaches taking care of before. Past medical history includes back surgery. He is not taking any medications, other than ibuprofen naproxen for the pain. Admits to some rhinorrhea. Denies any double vision, projectile vomiting, numbness, tingling, or loss of body function. TRAVEL OUTSIDE OF THE [place] IN LAST 30 DAYS: No - Related Data Allergies/Adverse Reactions: No Known Allergies Allergy (Verified 06/02/18 15:22) Past Medical History - Social History Smoking Status: Current Some Day Smoker Chew tobacco use (# tins/day): No Frequency of alcohol use: Social Drug Abuse: None Family History: Reviewed & Not Pertinent Patient has suicidal ideation: No Patient has homicidal ideation: No Neurological Medical History: Reports: Hx Migraine Renal/ Medical History: Denies: Hx Peritoneal Dialysis Musculoskeletal Medical History: Reports Hx Musculoskeletal Trauma Past Surgical History: Reports: Hx Orthopedic Surgery - back, Other - Immunizations Immunizations up to date: Yes Hx Diphtheria, Pertussis, Tetanus Vaccination: Yes Review of Systems - Review of Systems Notes: REVIEW OF SYSTEMS: CONSTITUTIONAL : Denies recent illness. Denies recent unintentional weight l oss. Denies fever, chills, or sweats. EENT: See HPI CARDIOVASCULAR: Denies chest pain. RESPIRATORY: Denies shortness of breath, cough, congestion, difficulty breathing, or wheezing. GASTROINTESTINAL: Denies nausea, vomiting, and diarrhea. Denies abdominal pain. Denies constipation. GENITOURINARY: Denies difficulty urinating, burning, blood in urine, urgency or frequency. MUSCULOSKELETAL: Denies neck and back pain. Denies joint pain or swelling. SKIN: Denies rash, itchiness, or lesions HEMATOLOGIC : Denies easy bruising or bleeding. LYMPHATIC: Denies swollen, painful, enlarged glands. NEUROLOGICAL: See HPI. PSYCHIATRIC: Denies stress, anxiety, alteration in sleep patterns, or depression. All other systems reviewed and negative. Physical Exam - Vital signs Vitals: Temp Pulse Resp BP Pulse Ox 98.1 F 77 16 151/87 H 99 11/09/18 07:34 11/09/18 07:34 11/09/18 07:34 11/09/18 07:34 11/09/18 07:34 - Notes Notes: PHYSICAL EXAMINATION: GENERAL: Appears well, healthy, well-nourished, no acute distress. HEAD: Normocephalic, atraumatic. EYES: PERRL, conjunctiva normal, all extraocular movements intact, sclera nonicteric ENT: Moist mucous membranes. Erythema and edema noted to nasal mucosa. NECK: Supple, no noticeable swelling, redness, rash. Normal range of motion. LUNGS: Equal breath sounds bilaterally and clear to auscultation. No wheezes rales or rhonchi. CARDIOVASCULAR: S1-S2, regular rate, regular rhythm. Radial pulses 2+, normal. ABDOMEN: Normoactive bowel sounds. Soft, nontender, no guarding, no rebound tenderness, and no masses palpated. EXTREMITIES: Normal strength and range of motion, no pitting or edema. No cyanosis. NEUROLOGICAL: Moves all extremities upon command. Strength 5/5 in all extremities. PSYCH: Normal mood, normal affect. SKIN: Warm, dry. No rash, lesions, ulcerations noted. Normal skin turgor. Course - Re-evaluation Re-evalutation: 11/09/18 09:58 Patient states that he has almost complete resolution of his migraine headache. Labs are not indicated, as the patient states that he has had migraine headaches before. I do not suspect patient has an intracranial bleed, or any life- threatening etiology at this time. He will be sent home with Flonase and Zyrtec to help with his edema and erythema to his nasal mucosa. Strict follow-up precautions were given. Verbal discharge instructions were given to the p atient. They verbalized understanding. They are stable for discharge. - Vital Signs Vital signs: Temp Pulse Resp BP Pulse Ox 97.7 F 65 17 154/95 H 100 11/09/18 10:14 11/09/18 10:14 11/09/18 10:14 11/09/18 10:14 11/09/18 10:14 Discharge - Discharge Clinical Impression: Nausea, Seasonal allergies Headache Qualifiers: Headache type: unspecified Headache chronicity pattern: acute headache Intractability: not intractable Qualified Code(s): R51 - Headache Condition: Stable Disposition: HOME, SELF-CARE Instructions: Headache (OM) Additional Instructions: You were seen today for a migraine headache. Please follow-up with your primary care doctor regarding today's ED visit. Return to emergency department immediately if you develop a headache that gets to its maximum severity within 20 minutes of onset, you pass out, you develop weakness, numbness, changes in your vision, become unable to keep any fluids down for more than 12 hours, or develop a fever greater than 100.4 degrees Fahrenheit. If you develop a similar migraine headache in the future I recommend that you immediately take 600 mg of ibuprofen and 50 mg of Benadryl and go to sleep as quickly as possible. This can often prevent your migraine headache from beco salomon severe. You have also been prescribed Flonase and Zyrtec. Take your first dose of Zyrtec tomorrow morning. Please follow-up with your primary care provider in regards to this visit. Prescriptions: Cetirizine HCl [Zyrtec 10 mg Tablet] 1 tab PO DAILY #30 tablet Fluticasone Propionate [Flonase Nasal Freeman 50 Mcg/Freeman 16 gm] 2 sprays NASL Q12 #1 inhaler Forms: Return to Work
[2018-11-09 10:18] VITALS: BP 154/95
== END 2018-11-09 10:18 | disposition home or self-care (01) ==
LOC: ER 07:30
DX: R51 Headache (principal); J30.2 Other seasonal allergic rhinitis; R11.0 Nausea; F17.200 Nicotine dependence, unspecified, uncomplicated
CPT/HCPCS: 96374; 99283; 96372; 96375; J1200; J0780; J2405

== ENCOUNTER 2019-01-30 07:34 | Emergency (ER) | payer OTHER ==
--- NOTE | 2019-01-30 08:33 | ER Document Report ---
ED General - General Chief Complaint: Abscess Stated Complaint: ABSCESS Time Seen by Provider: 01/30/19 08:25 Primary Care Provider: ELOY LAM [Primary Care Provider] - Follow up as needed TRAVEL OUTSIDE OF THE [place] IN LAST 30 DAYS: No - HPI Notes: Patient is a 43 yo male that presents to the emergency department for chief complaint of gluteal lump. Patient has noticed a lump on his left gluteus near his gluteal cleft for the last 1 to 2 months. He states he gets bigger and smaller but is not completely resolved. He states sometimes it is painful to sit on. He denies any drainage or redness to the area. He has not seen anyone regarding this. He states that it has not changed today but he wanted to have it evaluated. He denies any other symptoms including black or bloody stools, painful stools, diarrhea/constipation, fevers and chills. Past Medical History: Negative Past Surgical History: Lumbar spine surgery Social History: Social alcohol. Denies drug and tobacco use Family History: Reviewed and noncontributory for presenting illness Allergies: Reviewed, see documented allergy list. REVIEW OF SYSTEMS: CONSTITUTIONAL : No fever No chills No diaphoresis No recent illness EENT: No vision changes No congestion No sore throat CARDIOVASCULAR: No chest pain No palpitations RESPIRATORY: No shortness of breath No cough No difficulty breathing GASTROINTESTINAL: No abdominal pain No nausea No vomiting No diarrhea GENITOURINARY: No dysuria No hematuria No difficulty urinating MUSCULOSKELETAL: No back pain No leg pain No arm pain SKIN: No rashes Gluteal lesions LYMPHATIC: No swollen, enlarged glands. NEUROLOGICAL: No lightheadedness No headache No weakness No paresthesias PSYCHIATRIC: No anxiety No depression PHYSICAL EXAMINATION: Vital signs reviewed, nursing noted reviewed. GENERAL: Well-appearing, well-nourished and in no acute distress. HEAD: Atraumatic, normocephalic. EYES: Eyes appear normal, extraocular movements intact, sclera anicteric, conjunctiva are normal. ENT: nares patent, oropharynx clear without exudates. Moist mucous membranes. NECK: Normal range of motion, supple without lymphadenopathy LUNGS: Breath sounds clear to auscultation bilaterally and equal. No wheezes rales or rhonchi. HEART: Regular rate and rhythm without murmurs ABDOMEN: Soft, nontender, normoactive bowel sounds. No rebound, guarding, or rigidity. No masses appreciated. EXTREMITIES: Nontender, good range of motion, no pitting or edema. NEUROLOGICAL: No focal neurological deficits. Moves all extremities spontaneously Motor and sensory grossly intact on exam. PSYCH: Normal mood, normal affect. SKIN: Warm, Dry, normal turgor, small 0.5 cm x 0.5 cm firm left mid gluteal cleft cyst with no erythema or drainage. - Related Data Allergies/Adverse Reactions: No Known Allergies Allergy (Verified 01/30/19 07:34) Past Medical History - Social History Smoking Status: Current Some Day Smoker Frequency of alcohol use: Social Drug Abuse: Bath salts Family History: Reviewed & Not Pertinent Patient has suicidal ideation: No Patient has homicidal ideation: No Neurological Medical History: Reports: Hx Migraine Renal/ Medical History: Denies: Hx Peritoneal Dialysis Musculoskeletal Medical History: Reports Hx Musculoskeletal Trauma Past Surgical History: Reports: Hx Orthopedic Surgery - back, Other - Immunizations Immunizations up to date: Yes Hx Diphtheria, Pertussis, Tetanus Vaccination: Yes Physical Exam - Vital signs Vitals: Temp Pulse Resp BP Pulse Ox 98.3 F 72 16 142/82 H 99 01/30/19 07:37 01/30/19 07:37 01/30/19 07:37 01/30/19 07:37 01/30/19 07:37 Course - Re-evaluation Re-evalutation: 01/30/19 08:33 Vitals reviewed. Nursing notes reviewed. Patient does have a small cystic structure but does not appear infected in his left gluteal region. The area is firm without fluctuance and is not requiring incision and drainage. I suspect this is likely a pilonidal cyst that is not currently inflamed or infected. Patient will be referred to surgery for further management as needed. He was counseled on return precautions and verbalized understanding. - Vital Signs Vital signs: Temp Pulse Resp BP Pulse Ox 98.3 F 72 16 142/82 H 99 01/30/19 07:37 01/30/19 07:37 01/30/19 07:37 01/30/19 07:37 01/30/19 07:37 Discharge - Discharge Clinical Impression: Pilonidal cyst without infection Condition: Stable Disposition: HOME, SELF-CARE Additional Instructions: Please return to the emergency department if you have any worsening, or concern of your symptoms. Please return to the emergency department if you develop chest pain, difficulty breathing, severe abdominal pain, or ongoing vomiting. Please follow-up with your primary care physician in 2-3 days and any other recommended physicians. If prescribed, take all medications as directed. If you have any questions or concerns do not hesitate to return the emergency department for evaluation. This area is likely a pilonidal cyst. They can become infected and occasionally need drained if infection occurs. The treatment is to surgically remove the cyst which is usually done when they are not infected. If this area becomes increasingly red, swollen, painful or has purulent drainage please return to the emergency room for further care. Please contact Dr. Wright, general surgery, for removal of the cyst as needed. Referrals: [facility] [Primary Care Provider] - Follow up as needed EDDIE WRIGHT MD [ACTIVE STAFF] - Follow up as needed
[2019-01-30 08:49] VITALS: BP 150/93
== END 2019-01-30 08:51 | disposition home or self-care (01) ==
LOC: ER 07:34
DX: L05.91 Pilonidal cyst without abscess (principal); F17.200 Nicotine dependence, unspecified, uncomplicated; F19.10 Other psychoactive substance abuse, uncomplicated
CPT/HCPCS: 99282

== ENCOUNTER 2019-03-19 08:28 | Emergency (ER) | payer OTHER ==
[2019-03-19] MEDS ORDERED: IBUPROFEN 800 MG TABLET PO ONE (09:35)
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
[2019-03-19 10:03] VITALS: BP 151/88
== END 2019-03-19 10:05 | disposition home or self-care (01) ==
LOC: ER 08:28
DX: T22.112A Burn of first degree of left forearm, initial encounter (principal); T22.132A Burn of first degree of left upper arm, initial encounter; T31.0 Burns involving less than 10% of body surface; X19.XXXA Contact with other heat and hot substances, initial encounter

== ENCOUNTER 2019-07-19 07:28 | Emergency (ER) | payer OTHER ==
[2019-07-19] MEDS ORDERED: ONDANSETRON 4 MG TAB.RAPDIS PO ONE (09:03)
[2019-07-19] MEDS ORDERED: MORPHINE SULFATE 10 MG/ML INJ IV ONE (09:03)
[2019-07-19] MEDS ORDERED: LIDOCAINE 1% INJ-PF (10 MG/ML) 30 ML SDV INJ ONE (09:04)
[2019-07-19] MEDS ORDERED: MORPHINE SULFATE 10 MG/ML INJ IM ONE (09:39)
--- NOTE | 2019-07-19 09:45 | ER Document Report ---
Entered by GEORGE SEARS SCRIBE 07/19/19 0901 Acting as scribe for:LIEN DAY MD ED General - General Chief Complaint: Abscess Stated Complaint: CYST Time Seen by Provider: 07/19/19 08:54 Primary Care Provider: CAROLE,ELOY [Primary Care Provider] - Follow up as needed Mode of Arrival: Ambulatory Information source: Patient Notes: This 43 year old male patient presents to the ED today with complaints of a inflamed and swollen cyst that has been present for the past x2 months. Patient reports that the cyst is on his left gluteus near the gluteal cleft and that it is draining. TRAVEL OUTSIDE OF THE [place] IN LAST 30 DAYS: No - Related Data Allergies/Adverse Reactions: No Known Allergies Allergy (Verified 07/19/19 07:46) Past Medical History - General Information source: Patient - Social History Smoking Status: Former Smoker - quit x6 months ago Cigarette use (# per day): No Chew tobacco use (# tins/day): No Frequency of alcohol use: Social Drug Abuse: None Occupation: [employer] employee Family History: Reviewed & Not Pertinent Patient has suicidal ideation: No Patient has homicidal ideation: No Neurological Medical History: Reports: Hx Migraine Musculoskeletal Medical History: Reports Hx Musculoskeletal Trauma Past Surgical History: Reports: Hx Orthopedic Surgery - interveterbral cage fusion L2-3 - Immunizations Immunizations up to date: Yes Hx Diphtheria, Pertussis, Tetanus Vaccination: Yes Review of Systems - Review of Systems Constitutional: No symptoms reported EENT: No symptoms reported Cardiovascular: No symptoms reported Respiratory: No symptoms reported Gastrointestinal: See HPI, Other - inflamed and swollen cyst on left gluteus near gluteal cleft Genitourinary: No symptoms reported Male Genitourinary: No symptoms reported Musculoskeletal: No symptoms reported Skin: No symptoms reported Hematologic/Lymphatic: No symptoms reported Neurological/Psychological: No symptoms reported -: Yes All other systems reviewed and negative Physical Exam - Vital signs Vitals: Temp Pulse Resp BP Pulse Ox 99.0 F 87 14 141/79 H 99 07/19/19 07:36 07/19/19 07:36 07/19/19 07:36 07/19/19 07:36 07/19/19 07:36 - General General appearance: Appears well, Alert In distress: None Notes: There is a bulging, tender area on his left gluteus near the gluteal cleft where the skin is stretched and thin, which is consistent with an abscess. No drainage observed. - HEENT Head: Normocephalic, Atraumatic Eyes: Normal Pupils: PERRL - Respiratory Respiratory status: No respiratory distress Chest status: Nontender Breath sounds: Normal Chest palpation: Normal - Cardiovascular Rhythm: Regular Heart sounds: Normal auscultation Murmur: No - Abdominal Inspection: Normal Distension: No distension Bowel sounds: Normal Tenderness: Nontender Organomegaly: No organomegaly - Back Back: Normal, Nontender - Extremities General upper extremity: Normal inspection General lower extremity: Normal inspection - Neurological Neuro grossly intact: Yes - Psychological Associated symptoms: Normal affect, Normal mood - Skin Skin Temperature: Warm Skin Moisture: Dry Skin Color: Normal Course - Vital Signs Vital signs: Temp Pulse Resp BP Pulse Ox 99.1 F 89 16 146/87 H 98 07/19/19 11:37 07/19/19 11:37 07/19/19 11:37 07/19/19 11:37 07/19/19 11:37 Procedures - Incision and Drainage Left Buttock Type: Simple Anesthetic type: 1% Lidocaine mL's of anesthetic: 8 Blade size: 11 I&D procedure: Shurclens applied, Iodoform packing placed Incision Method: Incision made by scalpel Amount/type of drainage: A few cc of purulent drainage Notes: 07/19/19 12:18 Abscess cavity was probed with a mosquito clamp and extended superiorly about 2 cm. The abscess cavity was irrigated with at least 30 mL's of normal saline prior to packing with quarter inch iodoform gauze. Discharge - Discharge Clinical Impression: Left buttock abscess Condition: Stable Disposition: HOME, SELF-CARE Additional Instructions: Abscess You have an abscess (boil). This a pus-forming infection, usually due to staph. Some boils may be left to drain on their own, but most require lancing. From the time the tender lump first appears, it may be three or four days before the abscess is ready to yovany. Local heat and rest help at this stage of treatment. An antibiotic may prevent spread of the infection. Once the abscess is opened, packing may be placed into it. This is done so pus is not sealed inside by premature closure of the cavity. The packing will be removed at your follow-up visit or you may be advised to remove it yourself at home. Sometimes this packing must be replaced a few times during healing. The wound will heal with surprisingly little scar. Depending on the size and location of an abscess, healing can take one to four weeks. You may shower and wash the area around the incision site two or three times a day. Antibiotics may be prescribed, but are usually not necessary after an abscess has been drained. If you develop fever, chilling, worsening pain, or increasing swelling in the area, call the doctor or return immediately. Take the medications as prescribed. Take ibuprofen 600 mg every 8 hours. Limit activity for the next 2 to 3 days. Remove the gauze packing in 2 to 3 days. After you remove the gauze packing, begin probing the wound cavity with a Q-tip dipped in peroxide. Do this several times each day to keep the skin wound open for as long as possible to allow the abscess cavity to fill in from the inside to the outside. RETURN TO THE EMERGENCY ROOM IF ANY NEW OR WORSENING SYMPTOMS. Prescriptions: Sulfamethoxazole/Trimethoprim [Bactrim Ds Tablet] 2 tab PO BID #28 tablet Oxycodone HCl/Acetaminophen [Percocet 5-325 mg Tablet] 1 tab PO ASDIR PRN #12 tablet PRN Reason: Referrals: [facility] [Primary [facility]] - Follow up as needed Scribe Attestation: 07/19/19 11:10 I personally performed the services described in the documentation, reviewed and edited the documentation which was dictated to the scribe in my presence, and it accurately records my words and actions. I personally performed the services described in the documentation, reviewed and edited the documentation which was dictated to the scribe in my presence, and it accurately records my words and actions.
[2019-07-19 11:37] VITALS: BP 146/87
== END 2019-07-19 11:46 | disposition home or self-care (01) ==
LOC: ER 07:28
DX: L02.31 Cutaneous abscess of buttock (principal); Z87.891 Personal history of nicotine dependence
CPT/HCPCS: 10060; 99282; 96372; 87070; 87205; 87075; 87077; S0119; J3490; J2270

== ENCOUNTER 2019-08-13 00:28 | Emergency (ER) | payer OTHER ==
[2019-08-13] MEDS ORDERED: ACETAMINOPHEN 325 MG TABLET PO ONE (04:42)
--- NOTE | 2019-08-13 04:45 | ER Document Report ---
ED Blood Pressure Problem - General Chief Complaint: Blood Pressure Problem Stated Complaint: REPORTS HIGH BLOOD PRESSURE Time Seen by Provider: 08/13/19 04:22 Primary Care Provider: CAROLE,ELOY [Primary Care Provider] - Follow up as needed Mode of Arrival: Ambulatory TRAVEL OUTSIDE OF THE [place] IN LAST 30 DAYS: No - HPI Patient complains to provider of: High blood pressure Onset: Other - Patient has known he has had high blood pressure for years. Patient admits he has never taken any blood pressure medicine before. He had a headache and therefore he had his blood pressure checked. He left work early to come to the emergency department and is in need of a work note at this time. Blood pressure in the department shows 150/105. Onset/Duration: Gradual Quality of pain: Achy Severity: Moderate Problem is: Chronic problem Pt currently taking medication for problem: No Associated symptoms: Headache Similar symptoms previously: No Recently seen / treated by doctor: No - Related Data Allergies/Adverse Reactions: No Known Allergies Allergy (Verified 07/19/19 07:46) Past Medical History - Social History Smoking Status: Current Some Day Smoker Frequency of alcohol use: Occasional Drug Abuse: None Lives with: Family Family History: Reviewed & Not Pertinent Patient has suicidal ideation: No Patient has homicidal ideation: No - Past Medical History Cardiac Medical History: Reports: None Pulmonary Medical History: Reports: None Neurological Medical History: Reports: None, Hx Migraine Renal/ Medical History: Denies: Hx Peritoneal Dialysis Musculoskeletal Medical History: Reports Hx Musculoskeletal Trauma Past Surgical History: Reports: Hx Orthopedic Surgery - interveterbral cage fusion L2-3, Other - Immunizations Immunizations up to date: Yes Hx Diphtheria, Pertussis, Tetanus Vaccination: Yes Review of Systems - Review of Systems Cardiovascular: Other - hypertrension Physical Exam - Vital signs Vitals: Temp Pulse Resp BP Pulse Ox 98.8 F 88 20 172/90 H 98 08/13/19 00:35 08/13/19 00:35 08/13/19 00:35 08/13/19 00:35 08/13/19 00:35 Interpretation: Normal - General General appearance: Appears well, Alert - HEENT Head: Normocephalic, Atraumatic Eyes: Normal Pupils: PERRL - Respiratory Respiratory status: No respiratory distress Chest status: Nontender Breath sounds: Normal Chest palpation: Normal - Cardiovascular Rhythm: Regular Heart sounds: Normal auscultation Murmur: No - Abdominal Inspection: Normal Distension: No distension Bowel sounds: Normal Tenderness: Nontender Organomegaly: No organomegaly - Back Back: Normal, Nontender - Extremities General upper extremity: Normal inspection, Nontender, Normal color, Normal ROM, Normal temperature General lower extremity: Normal inspection, Nontender, Normal color, Normal ROM, Normal temperature, Normal weight bearing. No: Paras's sign - Neurological Neuro grossly intact: Yes Cognition: Normal Orientation: AAOx4 Bowers Coma Scale Eye Opening: Spontaneous [place] Coma Scale Verbal: Oriented [place] Coma Scale Motor: Obeys Commands Bowers Coma Scale Total: 15 Speech: Normal Motor strength normal: LUE, RUE, LLE, RLE Sensory: Normal - Psychological Associated symptoms: Normal affect, Normal mood - Skin Skin Temperature: Warm Skin Moisture: Dry Skin Color: Normal Course - Vital Signs Vital signs: Temp Pulse Resp BP Pulse Ox 98.5 F 73 16 150/103 H 100 08/13/19 03:16 08/13/19 03:16 08/13/19 03:16 08/13/19 03:16 08/13/19 03:16 Discharge - Discharge Clinical Impression: Hypertension Qualifiers: Hypertension type: essential hypertension Qualified Code(s): I10 - Essential (primary) hypertension Condition: Fair Disposition: HOME, SELF-CARE Prescriptions: Lisinopril/Hydrochlorothiazide [Lisinopril-Hctz 20-12.5 mg Tab] 1 each PO DAILY 30 Days #30 tablet Forms: Elevated Blood Pressure Referrals: [facility] [Primary [facility]] - Follow up as needed
[2019-08-13 05:29] VITALS: BP 150/90
== END 2019-08-13 05:29 | disposition home or self-care (01) ==
LOC: ER 00:28
DX: I10 Essential (primary) hypertension (principal); F17.200 Nicotine dependence, unspecified, uncomplicated
CPT/HCPCS: 99283

== ENCOUNTER 2019-09-18 21:09 | Emergency (ER) | payer OTHER, BC ==
[2019-09-18 23:11] LABS: A TYPE INFLUENZA AG NEGATIVE (NEGATIVE); B INFLUENZA AG NEGATIVE (NEGATIVE)
[2019-09-18] MEDS ORDERED: CETIRIZINE 10 MG TABLET PO ONE (23:29)
[2019-09-18] MEDS ORDERED: BENZONATATE 100 MG CAPSULE PO ONE (23:29)
--- NOTE | 2019-09-18 23:31 | ER Document Report ---
ED Medical Screen (RME) - General Chief Complaint: Cough Stated Complaint: COUGHING Time Seen by Provider: 09/18/19 23:26 Primary Care Provider: ELOY LAM [Primary Care Provider] - Follow up as needed Notes: Patient is a 43-year-old male who presents to the emergency department with a chief complaint of a cough. Patient states that he has had his cough for the past 4 weeks, but within the last 5 to 6 days, the cough has gotten worse. Exam: Harsh cough noted. No wheezing noted. Coarse breath sounds noted in the left middle lobe. I have greeted and performed a rapid initial assessment of this patient. A com prehensive ED assessment and evaluation of the patient, analysis of test results and completion of medical decision making process will be conducted by an additional ED providers. TRAVEL OUTSIDE OF THE [place] IN LAST 30 DAYS: No - Related Data Allergies/Adverse Reactions: No Known Allergies Allergy (Verified 09/18/19 23:25) Home Medications: HTN MEDS Past Medical History - Social History Frequency of alcohol use: None Drug Abuse: None Neurological Medical History: Reports: Hx Migraine Renal/ Medical History: Denies: Hx Peritoneal Dialysis Musculoskeltal Medical History: Reports Hx Musculoskeletal Trauma Past Surgical History: Reports: Hx Orthopedic Surgery - interveterbral cage fusion L2-3, Other - Immunizations Immunizations up to date: Yes Hx Diphtheria, Pertussis, Tetanus Vaccination: Yes Physical Exam - Vital signs Vitals: Temp Pulse Resp BP Pulse Ox 98.5 F 97 20 150/85 H 98 09/18/19 21:35 09/18/19 21:35 09/18/19 21:35 09/18/19 21:35 09/18/19 21:35 Course - Vital Signs Vital signs: Temp Pulse Resp BP Pulse Ox 98.5 F 97 20 150/85 H 98 09/18/19 21:35 09/18/19 21:35 09/18/19 21:35 09/18/19 21:35 09/18/19 21:35 Doctor's Discharge - Discharge Referrals: ELOY LAM [Primary Care Provider] - Follow up as needed
--- NOTE | 2019-09-19 00:22 | RADIOLOGY REPORT (SQ) ---
EXAM DESCRIPTION: PA and lateral view of the chest CLINICAL HISTORY: 43 years Male, cough COMPARISON: [facility] portable chest June 02, 2018 FINDINGS: Lungs: Lungs are clear. No pneumonia or edema. No pneumothorax or pleural effusion. Overall lung volumes and aeration have improved. Mediastinum: Cardiac and mediastinal silhouette are normal. Bones: Osseous structures are normal. IMPRESSION: No acute process. No pneumonia or edema.
--- NOTE | 2019-09-19 01:11 | ER Document Report ---
Entered by MARCELO ROWE SCRIBE 09/19/19 0045 Acting as scribe for:JULIET CARPENTER MD ED General - General Chief Complaint: Cough Stated Complaint: COUGHING Time Seen by Provider: 09/18/19 23:26 Primary Care Provider: [facility] [Primary [facility] Provider] - Follow up as needed Information source: Patient Notes: 43-year-old male presents to the emergency department complaining of a cough that began a week and a half ago with his symptom worsening. Patient states that he cannot rest and when he coughs his "ribs hurt". Patient reports clear sputum, fever, chills and diaphoresis. Patient states that his cough is worse when he lays down and is better when sitting up. TRAVEL OUTSIDE OF THE [place] IN LAST 30 DAYS: No - Related Data Allergies/Adverse Reactions: No Known Allergies Allergy (Verified 09/18/19 23:25) Home Medications: HTN MEDS Past Medical History - General Information source: Patient - Social History Smoking Status: Current Some Day Smoker Cigarette use (# per day): Yes Chew tobacco use (# tins/day): No Frequency of alcohol use: None Drug Abuse: None Occupation: [employer] Family History: Reviewed & Not Pertinent Patient has suicidal ideation: No Patient has homicidal ideation: No Neurological Medical History: Reports: Hx Migraine Renal/ Medical History: Reports: Hx Kidney Stones Musculoskeletal Medical History: Reports Hx Musculoskeletal Trauma Past Surgical History: Reports: Hx Orthopedic Surgery - interveterbral cage fusion L2-3, Other - Immunizations Immunizations up to date: Yes Hx Diphtheria, Pertussis, Tetanus Vaccination: Yes Review of Systems - Review of Systems Constitutional: See HPI, Chills, Diaphoresis, Fever EENT: No symptoms reported Cardiovascular: No symptoms reported Respiratory: See HPI, Cough, Sputum Gastrointestinal: No symptoms reported Genitourinary: No symptoms reported Male Genitourinary: No symptoms reported Musculoskeletal: No symptoms reported Skin: No symptoms reported Hematologic/Lymphatic: No symptoms reported Neurological/Psychological: No symptoms reported -: Yes All other systems reviewed and negative Physical Exam - Vital signs Vitals: Temp Pulse Resp BP Pulse Ox 98.5 F 97 20 150/85 H 98 09/18/19 21:35 09/18/19 21:35 09/18/19 21:35 09/18/19 21:35 09/18/19 21:35 - Notes Notes: Physical Exam: General: Alert. Excessive coughing. HEENT: Normocephalic. Atraumatic. PERRL. Extraocular movements intact. Oropharynx clear. Neck: Supple. Non-tender. Respiratory: No respiratory distress. Clear and equal breath sounds bilaterally. Cardiovascular: Regular rate and rhythm. Abdominal: Normal Inspection. Non-tender. No distension. Normal Bowel Sounds. Back: No gross abnormalities. Extremities: Moves all four extremities. Upper extremities: Normal inspection. Normal ROM. Lower extremities: Normal inspection. No edema. Normal ROM. Neurological: Normal cognition. AAOx4. Normal speech. Psychological: Normal affect. Normal Mood. Skin: Warm. Dry. Normal color. Course - Vital Signs Vital signs: Temp Pulse Resp BP Pulse Ox 98.5 F 97 20 150/85 H 98 09/18/19 21:35 09/18/19 21:35 09/18/19 21:35 09/18/19 21:35 09/18/19 21:35 - Laboratory Laboratory results interpreted by ri: Influenza a and B both negative and strep test negative. - Diagnostic Test Radiology reviewed: Image reviewed, Reports reviewed Radiology results interpreted by me: 09/19/19 01:06 Chest x-ray shows no acute infiltrate. Discharge - Discharge Clinical Impression: Acute bronchitis, Upper respiratory infection Condition: Stable Disposition: HOME, SELF-CARE Instructions: Upper Respiratory Illness ([facility]) Additional Instructions: Bronchitis You have acute bronchitis. This disease is an infection or inflammation of the air passageways in your lungs. Symptoms usually include cough, low grade fever, shortness of breath, and wheezing. The cough usually persists for a couple of weeks. Most cases of bronchitis get better without antibiotics. We prescribe antibiotics when we believe bacteria are damaging your airways, or if there's high risk the bronchitis will worsen into pneumonia. Increase your fluid intake. A cool mist humidifier may make your lungs more comfortable. An expectorant (cough medicine that loosens phlegm) can help. If you smoke, STOP!!! Recovery from bronchitis can be somewhat slow, but you should see improvement within a day or two. Repeated episodes of bronchitis may result in lung damage -- for example, chronic bronchitis, recurrent pneumonias, or emphysema. Call the doctor if you develop increasing fever, shortness of breath, chest pain, bloody sputum, or otherwise worsen. If you have not improved at all after several days, contact the physician. Prescriptions: Amoxicillin 1 tab PO TID #30 tab Prednisone [Deltasone 20 mg Tablet] 2 tab PO DAILY 5 Days #10 tablet Forms: Return to Work Referrals: [facility] [Primary Care [facility]] - Follow up as needed I personally performed the services described in the documentation, reviewed and edited the documentation which was dictated to the scribe in my presence, and it accurately records my words and actions.
[2019-09-19 01:17] VITALS: BP 134/88
== END 2019-09-19 01:10 | disposition home or self-care (01) ==
LOC: ER 21:09
DX: J20.9 Acute bronchitis, unspecified (principal); J06.9 Acute upper respiratory infection, unspecified
CPT/HCPCS: 71046; 87070; 87804; 87880; 99284